=== PATIENT | male | born 1980 | race Caucasian/White ===

== ENCOUNTER → 2021-05-16 | Outpatient (CLI) | payer OTHER ==
--- NOTE | 2021-05-17 03:41 | MR ---
EXAMINATION TYPE: MR lumbar spine wo con DATE OF EXAM: 05/16/2021 COMPARISON: None HISTORY: Low back pain for 1-2 years. Multiplanar multiecho imaging of the lumbar spine was performed with no contrast. Vertebra have normal alignment. There is slight narrowing and decreased signal in the disks at L4-5 a nd L5-S1. There are posterior central disc herniations at L4-5 and L5-S1. L4-5 disc herniation is mor e to the right side. There is mild L5-S1 neural foraminal narrowing due to disc space narrowing and m ild facet arthropathy. The visualized sacroiliac joints appear intact. There is no lumbar paraspinal mass. There is no compression fracture. I see no focal bone destruction. There is developmentally tae quate spinal canal. 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 No significant spinal stenosis . Mild neural foraminal narrowing at L5-S1.
== END | disposition home or self-care (01) ==
LOC: RADMRIMAIN 18:46
PROVIDERS: ATTEND Family Medicine
DX: M47.817 Spondylosis without myelopathy or radiculopathy, lumbosacral region (principal); M51.26 Other intervertebral disc displacement, lumbar region; M99.73 Connective tissue and disc stenosis of intervertebral foramina of lumbar region
CPT/HCPCS: 72148

== ENCOUNTER → 2022-11-27 | Outpatient (CLI) | payer OTHER ==
--- NOTE | 2022-11-27 21:33 | MR ---
EXAMINATION TYPE: MR knee LT wo con DATE OF EXAM: 11/27/2022 COMPARISON: NONE HISTORY: Left outer knee pain, locking, and swelling for 1 month TECHNIQUE: Multiplanar, multisequence images of the knee is performed without IV contrast. FINDINGS: MEDIAL MENISCUS: Anterior and posterior horns are intact without tear. LATERAL MENISCUS: Anterior and posterior horns are intact without tear. CRUCIATE LIGAMENTS: The anterior and posterior cruciate ligaments are intact and unremarkable. COLLATERAL LIGAMENTS: The medial collateral ligament and lateral collateral ligament complex are inta ct and unremarkable. EXTENSOR MECHANISM: Visualized quadriceps and patellar tendons are intact. Some increased signal in t he lateral aspect of the quadriceps tendon and proximal patellar tendon are noted. EFFUSION: Small size significant suprapatellar joint effusion. POPLITEAL CYST: Small size popliteal/gleason cyst. TRICOMPARTMENT SPACES: Mild to moderate narrowing patellofemoral compartment. No significant spurring is seen. CARTILAGE: Some chondromalacia patella with fissuring cartilaginous loss and areas BONE MARROW SIGNAL: Some increased T2 signal involving the inferior lateral aspect of the patella wit h some abnormal edema extending into the superior lateral aspect of Hoffa's fat pad. OTHER: Additional cystic change along the posterior medial aspect of the proximal tibia. IMPRESSION: 1. Tendinopathy/partial tearing of the lateral aspect distal quadriceps tendon and proximal patellar tendon. 2. Abnormal osseous edema in the inferior lateral patella with edema extending to superior aspect of Hoffa's fat pad consistent with impingement syndrome. Correlate clinically. 3. [id number] patellofemoral joint arthropathy as detailed above. 4. Small suprapatellar joint effusion. 5. Small popliteal cyst.
== END | disposition home or self-care (01) ==
LOC: RADMRIMAIN 17:45
PROVIDERS: ATTEND Internal Medicine Rheumatology
DX: S83.242A Other tear of medial meniscus, current injury, left knee, initial encounter (principal); M25.462 Effusion, left knee; M71.22 Synovial cyst of popliteal space [Baker], left knee; M17.12 Unilateral primary osteoarthritis, left knee